=== PATIENT | female | born 1960 ===

== ENCOUNTER 2024-10-25 17:20 | Outpatient (REF) | payer BC, SELFPAY ==
[2024-10-25 17:35] LABS: Bilirubin Negative (Negative); Blood Negative (Negative); Clarity Clear (Clear); Glucose Negative (Negative); Ketones Negative (Negative); Leukocyte Esterase Negative (Negative); Nitrite Negative (Negative); Specific Gravity 1.025 (1.005-1.025); Urobilinogen 0.2 mg/dL (Up to 0.2)
== END 2024-10-25 17:21 | disposition home or self-care (01) ==
LOC: LBN 17:20
PROVIDERS: PCP Family Medicine; Visit Provider Nurse Practitioner Gerontology
DX: R31.9 Hematuria, unspecified (principal)
CPT/HCPCS: 81003